=== PATIENT | male | born 1970 | race Caucasian/White ===

== ENCOUNTER 2018-03-30 09:20 | Day surgery (SDC) | payer OTHER ==
[2018-03-25 13:09] VITALS: BMI 29.5
[~2018-03-30 09:20] MED LIST: LACTATED RINGERS 1,000 ML IV SCH; LIDOCAINE 1% 20 ML VIAL (10MG/ML) FOR IV START INTRADERMA PRN
[2018-03-30 09:47] VITALS: RESP 16; TEMP 98.7
[2018-03-30] MEDS ORDERED: PROPOFOL 10 MG/ML 20 ML VIAL IV ONE (10:57)
[2018-03-30] MEDS ORDERED: fentaNYL (PF) 50 MCG/ML 2 ML AMP ONE (10:57)
[2018-03-30] MEDS ORDERED: MIDAZOLAM 2 MG/2 ML VIAL ONE (10:57)
--- NOTE | 2018-03-30 11:06 | P.GSHP ---
History of Present Illness H&P Date: 03/30/18 Chief Complaint: GERD This a 47-year-old male from Dr. Dav Smith. Patient will stay for EGD. He' s had issues with GERD. Past Medical History Past Medical History: Cancer, GERD/Reflux Additional Past Medical History / Comment(s): prostate cancer History of Any Multi-Drug Resistant Organisms: None Reported Past Surgical History: Prostate Surgery Past Anesthesia/Blood Transfusion Reactions: No Reported Reaction Smoking Status: Never smoker - Past Family History Mother Family Medical History: Cancer Father Family Medical History: Cancer, Myocardial Infarction ([place]) Additional Family Medical History / Comment(s): prostate cancer, aneurysm Medications and Allergies Home Medications Medication Instructions Recorded Confirmed Type Omeprazole [PriLOSEC] 20 mg PO AC-BRKFST 03/25/18 03/30/18 History Allergies Allergy/AdvReac Type Severity Reaction Status Date / Time No Known Allergies Allergy Verified 03/25/18 13:02 Surgical - Exam Vital Signs Temp Pulse Resp BP Pulse Ox 98.7 F 64 16 128/88 95 03/30/18 09:45 03/30/18 09:45 03/30/18 09:45 03/30/18 09:45 03/30/18 09:45 - General well developed, no distress - Eyes PERRL - ENT normal pinna - Neck no masses, no bruits - Respiratory normal expansion - Cardiovascular Rhythm: regular - Abdomen Abdomen: soft, non tender Assessment and Plan Assessment: GERD. We'll perform EGD.
--- NOTE | 2018-03-30 11:17 | P.OP ---
Date of Procedure: 03/30/18 Preoperative Diagnosis: GERD Postoperative Diagnosis: Antral gastritis Sliding hiatal hernia Mild esophagitis Procedure(s) Performed: EGD Anesthesia: MAC Surgeon: Antoine Landon Pathology: other (Antrum, esophagus) Condition: stable Disposition: PACU Description of Procedure: The patient's placed on the endoscopy table in the lateral position. He received IV sedation. The gastroscope placed oropharynx and then into the stomach and then through the pylorus and the duodenum. The first and second portion of the duodenum appeared normal. Scope was then brought back the antrum this. Mildly inflamed. A biopsies performed. The scope was then retroflexed and the remainder stomach appeared normal. The GE junction was at 38 cm. There was a sliding hiatal hernia. The distal esophagus appeared mildly inflamed. A biopsies performed. The proximal esophagus appeared normal. Scope was withdrawn for patient.
[2018-03-30 11:41] VITALS: BP 133/86; PULSE 60
== END 2018-03-30 11:59 | disposition home or self-care (01) ==
LOC: ORWHC2ENDO 09:20
PROVIDERS: ATTEND Surgery
DX: K29.70 Gastritis, unspecified, without bleeding (principal); K44.9 Diaphragmatic hernia without obstruction or gangrene; K21.0 Gastro-esophageal reflux disease with esophagitis; J30.9 Allergic rhinitis, unspecified; N18.3 Chronic kidney disease, stage 3 (moderate); J44.9 Chronic obstructive pulmonary disease, unspecified; Z85.46 Personal history of malignant neoplasm of prostate; Z79.899 Other long term (current) drug therapy
CPT/HCPCS: 88305; 43239; J2250; J3010; J2704

== ENCOUNTER → 2018-09-16 | Outpatient (CLI) | payer OTHER ==
--- NOTE | 2018-09-17 07:27 | US ---
EXAMINATION TYPE: US kidneys/renal and bladder DATE OF EXAM: 09/16/2018 COMPARISON: NONE CLINICAL HISTORY: N28.9 Renal Insuffiencey. Abnormal kidney function test. EXAM MEASUREMENTS: Right Kidney: 9.3 x 4.9 x 3.1 cm Left Kidney: 10.2 x 5.7 x 3.6 cm Right Kidney: Cystic area lower pole 1.2 x 1.6 x 1.5cm. Left Kidney: wnl Bladder: wnl Bilateral Jets seen: Yes There is no evidence for hydronephrosis at this point in time. No nephrolithiasis is seen. The urina ry bladder is anechoic. Bilateral ureteral jets are seen. There is 1.5 cm round hypoechoic anechoic lesion with increased through transmission lower pole level right kidney favoring simple cyst, too sm all to definitively characterize on this study. Consider short-term ultrasound follow-up 6 months shan e to document stability or renal protocol contrast-enhanced CT/MRI to definitively exclude complex cy stic or solid lesion. IMPRESSION: No hydronephrosis is evident bilaterally.
== END | disposition home or self-care (01) ==
LOC: RADUSMAIN 17:51
PROVIDERS: ATTEND Family Medicine
DX: N28.9 Disorder of kidney and ureter, unspecified (principal)
CPT/HCPCS: 76770

== ENCOUNTER 2019-01-07 07:46 | Observation (INO) | payer OTHER ==
[2019-01-03 14:41] VITALS: BMI 28.0
[~2019-01-07 07:46] MED LIST changes: +DEXAMETHASONE SOD PHOSPHATE 10 MG/ML 1 ML VIAL IV ONE; +HEPARIN SODIUM,PORCINE 5,000 UNIT/ML 1 ML VIAL SQ ONE; -LACTATED RINGERS 1,000 ML IV SCH; -LIDOCAINE 1% 20 ML VIAL (10MG/ML) FOR IV START INTRADERMA PRN; +MIDAZOLAM 2 MG/2 ML VIAL IV PRN; +ONDANSETRON 4 MG/2 ML VIAL IVP ONE; +SCOPOLAMINE 1.5MG/72HR PATCH TRANSDERM ONE; +ceFAZolin IN SWFI 2 GM/20 ML SYRINGE IVP ONE
[2019-01-07] MEDS: LACTATED RINGERS 1,000 ML IV SCH (08:16)
[2019-01-07] MEDS ORDERED: SUCCINYLCHOLINE CHLORIDE 100 MG/5 ML SYR IV ONE (09:18)
[2019-01-07] MEDS ORDERED: NEOSTIGMINE 1 MG/ML 10 ML VIAL ONE (09:18)
[2019-01-07] MEDS ORDERED: PROPOFOL 10 MG/ML 20 ML VIAL IV ONE (09:18)
[2019-01-07] MEDS ORDERED: GLYCOPYRROLATE 0.2 MG/ML 2 ML VIAL ONE (09:18)
[2019-01-07] MEDS ORDERED: MIDAZOLAM 2 MG/2 ML VIAL ONE (09:18)
[2019-01-07] MEDS ORDERED: ROCURONIUM BROMIDE 10 MG/ML 10 ML VIAL IV ONE (09:18)
[2019-01-07] MEDS ORDERED: fentaNYL (PF) 50 MCG/ML 2 ML AMP ONE (09:18)
[2019-01-07] MEDS ORDERED: LIDOCAINE 1% INJ 10MG/ML (20 ML MDV) ONE (09:18)
[2019-01-07] MEDS ORDERED: BUPIVACAINE (PF) 0.5% 30 ML VIAL SQ ONE (09:49)
[2019-01-07] MEDS ORDERED: ONDANSETRON 4 MG/2 ML VIAL IVP PRN (10:14)
[2019-01-07] MEDS ORDERED: LACTATED RINGERS 1,000 ML IV ONE (10:19)
--- NOTE | 2019-01-07 10:31 | P.OP ---
Date of Procedure: 01/07/19 Preoperative Diagnosis: GERD Postoperative Diagnosis: GERD Hiatal hernia Procedure(s) Performed: Laparoscopic Ruth fundal plication Anesthesia: PIERRE Surgeon: Antoine Landon Pathology: other (Antrum) Condition: stable Disposition: PACU Description of Procedure: The patient was placed on the operating table in the supine position. The patient received general anesthesia. And was placed in dorsal lithotomy position. The patient was prepped and draped in the usual sterile fashion. The skin incision sites were anesthetized with 1% local Xylocaine. The skin was incised in the left periumbilical area and then using a blade less 5 mm trocar under direct visualization panel cavity was entered. After adequate insufflation the laparoscope was then placed into the peritoneal cavity. Next a 5 mm trochars placed in the right epigastric position. Another 5 millimeter trocar the right lateral position. Another 5 millimeter trocar in the left lateral position a 5 mm trocar is placed in the left epigastric position. And then the initial 5 mm trocar was exchanged for a 10 mm trocar. The left lateral lobe liver was retracted. The hernia was seen. The crural defect was then dissected using the Harmonic scissors device. A 360 crural dissection was performed the esophagus stomach was reduced back into the peritoneal Cavity. The crural defect was then closed using 2-0 Ethibond suture. Next the fundus of the stomach was mobilized using the [place] scissors device. and then a 58-F rench bougie dilator was placed oropharynx passed into the esophagus and stomach the fundal plication wrap was then performed by grasping the fundus posteriorly and bringing it around the esophagus and stomach fundoplication was then performed using 2-0 Ethibond suture. Care was taken that the fundal location rested over top of the intra-abdominal esophagus. There was no injury seen to the stomach or esophagus. The dilator was then withdrawn. The abdomen was irrigated there is no bleeding seen. The trochars were then withdrawn and then skin incision sites were closed using 3-0 Monocryl suture Steri-Strips are applied. Patient thought procedure well and sent to recovery room in stable condition.
--- NOTE | 2019-01-07 10:32 | P.GSHP ---
History of Present Illness H&P Date: 01/07/19 Chief Complaint: GERD This a 48-year-old male referred from Dr. Ren. MinThe patient has had long- standing problems with reflux esophagitis. The patient underwent recent EGD is found have evidence of esophagitis. Patient has been well informed on the procedure of laparoscopic Ruth fundoplication. The patient is aware the risk of the conversion to the open procedure, risk of injury to the stomach, liver and spleen. The patient is also a risk of recurrent GERD and dysphagia symptoms. The patient understands there is a postoperative diet of full liquids for 2 weeks after surgery. Past Medical History Past Medical History: Cancer, GERD/Reflux Additional Past Medical History / Comment(s): Hx prostate cancer in 2016. History of Any Multi-Drug Resistant Organisms: None Reported Past Surgical History: Prostate Surgery Past Anesthesia/Blood Transfusion Reactions: No Reported Reaction Past Psychological History: No Psychological Hx Reported Smoking Status: Never smoker Past Alcohol Use History: Occasional Past Drug Use History: None Reported - Past Family History Mother Family Medical History: Cancer Father Family Medical History: Cancer, Myocardial Infarction ([place]) Additional Family Medical History / Comment(s): Prostate cancer, aneurysm. Medications and Allergies Home Medications Medication Instructions Recorded Confirmed Type Nexium (Unknown Dose) 1 tab PO QAM 01/03/19 01/07/19 History Allergies Allergy/AdvReac Type Severity Reaction Status Date / Time No Known Allergies Allergy Verified 01/07/19 08:09 Surgical - Exam Vital Signs Temp Pulse Resp BP Pulse Ox 98.2 F 74 16 132/85 94 L 01/07/19 08:04 01/07/19 08:04 01/07/19 08:04 01/07/19 08:04 01/07/19 08:04 - General well developed, well nourished, no distress - Eyes PERRL - ENT normal pinna - Neck no masses - Respiratory normal expansion - Cardiovascular Rhythm: regular - Abdomen Abdomen: soft, non tender Assessment and Plan Assessment: GERD. We'll perform laparoscopic Ruth fundoplication.
[2019-01-07] MEDS: HYDROmorphone 0.5 MG/0.5 ML SYRINGE IVP PRN ×4 (10:35→11:04)
[2019-01-07] MEDS: D5-0.45% NACL WITH KCL 20MEQ/L 1,000 ML IV SCH ×3 (15:23→22:25)
--- NOTE | 2019-01-07 15:23 | FL ---
EXAMINATION TYPE: FL esophagus cervic/pharynx DATE OF EXAM: 01/07/2019 LIMITED UGI-ESOPHAGRAM: CLINICAL HISTORY: History of hiatal hernia and reflux treated with medication status post Giovani fun doplication surgery earlier today. TECHNIQUE: Limited esophagram is performed utilizing 50 oz of Isovue-370. A total of 29 seconds of f luoroscopic time was utilized during procedure. 17 spot images are saved to PACS. FINDINGS: The patient swallowed contrast without difficulty or delay. Esophageal peristalsis and mo tility are within normal limits. There is moderate delay in flow of contrast along the diaphragmatic hiatus into the stomach, there is no evidence of contrast extravasation to suggest leak. No persisten t hiatal hernia is seen. Patient remains asymptomatic despite majority contrast refluxing back to mid esophageal level. Tiny amount of postoperative pneumoperitoneum below right hemidiaphragm incidental ly seen. IMPRESSION: No evidence of leak or residual hernia status post Giovani fundoplication surgery earlier today. Moderate obstruction at surgical site presumed on the basis of postoperative edema, patient no inocencio to show no increased symptoms of increased nausea.
[2019-01-07] MEDS: FAMOTIDINE 20 MG/2 ML VIAL IV SCH (19:38)
[2019-01-07] MEDS: HYDROmorphone 1 MG/ML 1 ML SYRINGE IVP PRN (22:25)
--- NOTE | 2019-01-07 22:45 | P.CONS ---
History of Present Illness - Reason for Consult Consult date: 01/07/19 Medical management Requesting physician: Antoine Landon - Chief Complaint Reflux - History of Present Illness Consultation: This is a very pleasant 48-year-old patient of Dr. Ren. Has been troubled with reflux symptoms for years. Has taken different antireflux medications including H2 blockers and PPI. Symptoms not getting better. Getting worse. Worse with lying down. And with certain foods. Therefore decided to go for surgery. Patient status post Ruth fundoplication. Postprocedure started on ice chips. Laying in bed. Pain is controlled. Patient had prostate cancer treated with cryotherapy. Review of systems: GEN.: None EYES: None HEENT: None NECK: None RESPIRATORY: None CARDIOVASCULAR: None GASTROINTESTINAL: Reflux GENITOURINARY: None MUSCULOSKELETAL: None LYMPHATICS: None HEMATOLOGICAL: None PSYCHIATRY: None NEUROLOGICAL: None Past medical history: Prostate cancer treated with cryotherapy, GERD Social history: Does not smoke. Alcohol occasionally. Lives alone. Works as a railroad. Physical examination: VITAL SIGNS: 98.2, 52,, 17, 114/65, 97% room air GENERAL: Average built, propped up in bed, not in distress. EYES: Pupils equal. Conjunctiva normal. HEENT: External appearance of nose and ears normal, oral cavity grossly normal. NECK: JVD not raised; masses not palpable. HEART: First and second heart sounds are normal; no edema. LUNGS: Respiratory rate normal; clear to auscultation. ABDOMEN: Soft, minimal tenderness, liver spleen not palpable, no masses palpable. PSYCH: Alert and oriented x3; mood and affect normal. NEUROLOGICAL: Cranial nerves grossly intact; no facial asymmetry, power and sensation grossly intact. LYMPHATICS: No lymph nodes palpable in the axilla and neck Assessment: -Status post Ruth fundoplication -Uncontrolled GERD -Sinus bradycardia Plan: Patient's current medications are reviewed that included scopolamine patch, lactated Ringer's, subcu heparin, IV Pepcid, subcu Lovenox,. Care was discussed with the patient. Encouraged to ambulate. Thank you Dr. Landon Past Medical History Past Medical History: Cancer, GERD/Reflux Additional Past Medical History / Comment(s): Hx prostate cancer in 2016. History of Any Multi-Drug Resistant Organisms: None Reported Past Surgical History: Prostate Surgery Past Anesthesia/Blood Transfusion Reactions: No Reported Reaction Past Psychological History: No Psychological Hx Reported Smoking Status: Never smoker Past Alcohol Use History: Occasional Past Drug Use History: None Reported - Past Family History Mother Family Medical History: Cancer Father Family Medical History: Cancer, Myocardial Infarction ([place]) Additional Family Medical History / Comment(s): Prostate cancer, aneurysm. Medications and Allergies Home Medications Medication Instructions Recorded Confirmed Type Nexium (Unknown Dose) 1 tab PO QAM 01/03/19 01/07/19 History Allergies Allergy/AdvReac Type Severity Reaction Status Date / Time No Known Allergies Allergy Verified 01/07/19 08:09 Physical Exam Vitals: Vital Signs Temp Pulse Pulse Resp BP BP Pulse Ox 01/07/19 18:46 98.2 F 71 17 114/65 97 01/07/19 13:56 52 L 51 L 15 01/07/19 13:00 52 L 157/104 01/07/19 12:45 59 L 149/98 01/07/19 12:30 50 L 133/91 01/07/19 12:15 57 L 135/89 01/07/19 12:00 52 L 142/93 01/07/19 11:45 54 L 141/92 01/07/19 11:30 49 L 125/85 01/07/19 11:15 98.0 F 51 L 15 118/75 96 01/07/19 11:06 51 L 16 134/88 97 01/07/19 10:50 58 L 16 140/87 98 01/07/19 10:35 57 L 16 139/62 100 01/07/19 10:21 79 16 144/95 96 01/07/19 08:04 98.2 F 74 16 132/85 94 L Intake and Output 01/07/19 01/07/19 01/07/19 06:59 14:59 22:59 Intake Total 1600 375 Output Total 10 Balance 1590 375 Intake: IV 1600 Intake, IV Titration 375 Amount D5-0.45% NaCl with KCl 375 20Meq/l 1,000 ml @ 125 mls/hr IV .Q8H [facility] Rx#: [id number] Output: Estimated Blood Loss 10 Other: Weight 86.183 kg
[2019-01-08] MEDS: LACTATED RINGERS 1,000 ML IV SCH (05:49)
[2019-01-08 08:09] VITALS: RESP 16
[2019-01-08] MEDS: FAMOTIDINE 20 MG/2 ML VIAL IV SCH (08:55)
[2019-01-08] MEDS: HYDROmorphone 1 MG/ML 1 ML SYRINGE IVP PRN (08:56)
[2019-01-08] MEDS ORDERED: ENOXAPARIN 40 MG/0.4 ML SYRINGE SQ SCH (09:00)
[2019-01-08] MEDS ORDERED: HYDROcodone/APAP 5-325MG 1 EACH TAB PO PRN (10:27)
--- NOTE | 2019-01-08 10:30 | P.DS ---
Providers Expected date of discharge: 01/08/19 Attending physician: Antoine Landon Consults: 01/07/19 10:14 Consult Physician Routine Consulting Provider: Vikas Rosado Consult Reason/Comments: Medical management Do you want consulting provider notified?: Yes [facility] Course: Patient underwent Ruth fundoplication yesterday laparoscopically. Did well overnight. Upper GI shows moderate obstruction however the patient is not symptomatic. Denies nausea or vomiting. No dysphagia at this time. He likes to go home today. Will plan discharge. Follow-up one week. Plan - Discharge Summary Discharge Rx Participant: Yes New Discharge Prescriptions: New HYDROcodone/APAP 5-325MG [Brielle 5-325] 1 tab PO Q4HR PRN #10 tab PRN Reason: Pain Continue Nexium (Unknown Dose) 1 tab PO QAM Discharge Medication List Nexium (Unknown Dose) 1 tab PO QAM 01/03/19 [History] HYDROcodone/APAP 5-325MG [Brielle 5-325] 1 tab PO Q4HR PRN #10 tab 01/08/19 [Rx] Follow up Appointment(s)/Referral(s): Ryland Ren DO [Primary Care Provider] - 1 Week (CALL OFFICE ON THURSDAY TO SCHEDULE APPOINTMENT, OFFICE CLOSED AT TIME OF DISCHARGE.) Antoine Landon MD [STAFF PHYSICIAN] - 1 Week (CALL OFFICE ON THURSDAY TO SCHEDULE APPOINTMENT, OFFICE CLOSED AT TIME OF DISCHARGE.) Patient Instructions/Handouts: *Surgery [facility] - ([facility]) Lap Ruth Fundiplication Post-Op Instructions, Fundoplication in Adults (DC) Activity/Diet/Wound Care/Special Instructions: NO HEAVY LIFTING, PUSHING OR PULLING NO DRIVING UNTIL OK WITH SURGEON MAY SHOWER, NO TUB BATHS, POOLS, HOT TUBS OR SOAKING OFF WORK UNTIL OK BY SURGEON LIQUID RUTH DIET UNTIL CHANGED BY SURGEON, NO CAFFEINE, NO STRAWS OR CARBONATION.
[2019-01-08 13:48] VITALS: BP 129/77; PULSE 71; TEMP 98
--- NOTE | 2019-01-08 23:44 | P.PN ---
Progress Note - Text Progress Note Date: 01/08/19 - Chief Complaint Reflux Interval history: This is a very pleasant 48-year-old patient of Dr. Ren. Has been troubled with reflux symptoms for years. Has taken different antireflux medications including H2 blockers and PPI. Symptoms not getting better. Getting worse. Worse with lying down. And with certain foods. Therefore decided to go for surgery. Patient status post Ruth fundoplication. Postprocedure started on ice chips. Laying in bed. Pain is controlled. Patient had prostate cancer treated with cryotherapy. Today-feeling better. Did tolerate a clear liquid diet. No nausea vomiting. No abdominal pain. Up and about. Review of systems: Was done for constitutional, cardiovascular, GI, pulmonary. relevant finding as above Current medications are reviewed that include: Reviewed in the electronic records from today Physical examination: VITAL SIGNS: 98, 71, 16, 129/77, 97% room air GENERAL: Sitting up comfortable EYES: Pupils equal. Conjunctiva normal. HEENT: External appearance of nose and ears normal, oral cavity grossly normal. NECK: JVD not raised; masses not palpable. HEART: First and second heart sounds are normal; no edema. LUNGS: Respiratory rate normal; clear to auscultation. ABDOMEN: Soft, minimal tenderness, liver spleen not palpable, no masses palpable. PSYCH: Alert and oriented x3; mood and affect normal. Assessment: -Status post Ruth fundoplication -Uncontrolled GERD -Sinus bradycardia Plan: Patient stable. Okay to be discharged. Follow with PCP. Thank you Dr. Landon
== END 2019-01-08 15:07 ==
LOC: OR 07:46 → 4SSUR 10:17 → OR 01-08 14:05 → 4SSUR 01-08 14:20
PROVIDERS: ADMIT Surgery; ATTEND Surgery
DX: K21.0 Gastro-esophageal reflux disease with esophagitis (principal); R00.1 Bradycardia, unspecified; N28.9 Disorder of kidney and ureter, unspecified; K44.9 Diaphragmatic hernia without obstruction or gangrene; Z85.46 Personal history of malignant neoplasm of prostate; Z79.899 Other long term (current) drug therapy; Z80.42 Family history of malignant neoplasm of prostate; Z82.49 Family history of ischemic heart disease and other diseases of the circulatory system
CPT/HCPCS: 74210; 43280; G0378; J2250; J1644; J1100; J2710; J2405; J2001; J1650; J3010; J1170 ×3; J0330; J2704; J0690; Q9967

== ENCOUNTER → 2019-01-24 | Outpatient (CLI) | payer OTHER | END | disposition home or self-care (01) | DX: N18.3 Chronic kidney disease, stage 3 (moderate) (principal) | CPT/HCPCS: 97802 ==

== ENCOUNTER → 2019-03-18 | Outpatient (CLI) | payer OTHER ==
--- NOTE | 2019-03-18 09:47 | US ---
EXAMINATION TYPE: US abd limited kidneys/bladder DATE OF EXAM: 03/18/2019 COMPARISON: NONE CLINICAL HISTORY: R74.8 ABN Levels of other serum enzymes. Abn labs, f/u right renal cyst EXAM MEASUREMENTS: Liver Length: 13.7 cm Gallbladder Wall: 0.3 cm CBD: 0.3 cm Right Kidney: 10.3 x 4.9 x 4.3 cm Left Kidney: 10.4 x 5.4 x 5.4 cm Pancreas: Obscured by bowel gas Liver: wnl Gallbladder: wnl CBD: wnl Right Kidney: Possible 4mm calculus upper pole/ cyst lower pole= 1.7 x 1.5 x 1.6 cm as seen on previ ous Left Kidney: Probable 9mm renal calculus upper pole Bladder: wnl Bilateral Jets Seen No IMPRESSION: 1. Nonobstructing nephrolithiasis noted.
== END | disposition home or self-care (01) ==
LOC: RADUSWWP 07:35
PROVIDERS: ATTEND Family Medicine
DX: N20.0 Calculus of kidney (principal)
CPT/HCPCS: 76705; 76770

== ENCOUNTER → 2019-04-08 | Outpatient (CLI) | payer OTHER ==
[2019-04-08 21:19] LABS: ALT 29 U/L (10-49); AST 27 U/L (14-35); Albumin/Globulin Ratio 2.65 (1.60-3.17); Alkaline Phosphatase 62 U/L (41-126); Bilirubin, Conjugated <0.20 mg/dL (0.20-0.40); Globulin 1.7 g/dL (1.6-3.3); Total Bilirubin 0.4 mg/dL (0.2-1.2); Total Protein 6.2 g/dL (6.2-8.2)
== END | disposition home or self-care (01) ==
LOC: LABWHC1 11:53
PROVIDERS: ATTEND Physician Assistant
DX: R74.8 Abnormal levels of other serum enzymes (principal)
CPT/HCPCS: 36415; 80076; 86708; 86709

== ENCOUNTER → 2020-05-16 | Outpatient (CLI) | payer OTHER ==
--- NOTE | 2020-05-16 09:27 | NM ---
EXAMINATION TYPE: NM hepatobiliary w CCK DATE OF EXAM: 05/16/2020 COMPARISON: NONE INDICATION: Biliary dyskinesia TECHNIQUE: After the intravenous administration of 4 mCi Tc 99m Mebrofenin hepatobiliary scintigraphy is performed. Images were obtained immediately post injection. FINDINGS: There is prompt uptake and excretion of radiotracer by the liver. Extrahepatic ducts are identified at 7 minutes. The gallbladder is visualized within 28 minutes. Small bowel activity is noted within 12 minutes. At one hour CCK was administered, patient was injected with 1.9 mcg of Kinevac, and gallbladder eject ion fraction is calculated at 45 %, which is in the normal range.. (Normal >35% and <80%.). IMPRESSION: 1. Normal hepatobiliary scan.
== END | disposition home or self-care (01) ==
LOC: RADNMMAIN 06:49
PROVIDERS: ATTEND Surgery
DX: K82.8 Other specified diseases of gallbladder (principal)
CPT/HCPCS: 78227; A9537; J2805

== ENCOUNTER 2020-09-06 09:47 | Day surgery (SDC) | payer OTHER ==
[2020-09-04 09:28] VITALS: BMI 29.5
[~2020-09-06 09:47] MED LIST changes: -DEXAMETHASONE SOD PHOSPHATE 10 MG/ML 1 ML VIAL IV ONE; -HEPARIN SODIUM,PORCINE 5,000 UNIT/ML 1 ML VIAL SQ ONE; +LACTATED RINGERS 1,000 ML IV SCH; +LIDOCAINE 1% (10MG/ML) FOR IV START INTRADERMA PRN; -MIDAZOLAM 2 MG/2 ML VIAL IV PRN; -ONDANSETRON 4 MG/2 ML VIAL IVP ONE; -SCOPOLAMINE 1.5MG/72HR PATCH TRANSDERM ONE; -ceFAZolin IN SWFI 2 GM/20 ML SYRINGE IVP ONE
[2020-09-06 10:52] VITALS: RESP 16; TEMP 97.9
[2020-09-06] MEDS ORDERED: MIDAZOLAM 2 MG/2 ML VIAL ONE (11:49)
[2020-09-06] MEDS ORDERED: fentaNYL (PF) 50 MCG/ML 2 ML AMP ONE (11:49)
[2020-09-06] MEDS ORDERED: PROPOFOL 10 MG/ML 20 ML VIAL IV ONE (11:49)
--- NOTE | 2020-09-06 11:54 | P.GSHP ---
History of Present Illness H&P Date: 09/06/20 Chief Complaint: Internal and external hemorrhoids Is a 50-year-old male who presents today for colonoscopy. Issues with internal and external hemorrhoids present problems with rectal bleeding pain itching. Past Medical History Past Medical History: Cancer, GERD/Reflux, Prostate Disorder Additional Past Medical History / Comment(s): Hx prostate cancer, current UTI- on Rx, History of Any Multi-Drug Resistant Organisms: None Reported Past Surgical History: Hernia Repair, Prostate Surgery Additional Past Surgical History / Comment(s): hiatal hernia repair Past Anesthesia/Blood Transfusion Reactions: No Reported Reaction Smoking Status: Never smoker - Past Family History Mother Family Medical History: Cancer Additional Family Medical History / Comment(s): lymphoma Father Family Medical History: Cancer, Myocardial Infarction ([place]) Additional Family Medical History / Comment(s): Prostate cancer, aneurysm. Medications and Allergies Home Medications Medication Instructions Recorded Confirmed Type Cipro(Dose Unknown) 1 tab PO BID 09/04/20 09/04/20 History Vitamin D (Dose Unknown) 1 tab PO QAM 09/04/20 09/04/20 History Allergies Allergy/AdvReac Type Severity Reaction Status Date / Time No Known Allergies Allergy Verified 09/04/20 09:21 Surgical - Exam Vital Signs Temp Pulse Resp BP Pulse Ox 97.9 F 88 16 143/88 95 09/06/20 10:50 09/06/20 10:50 09/06/20 10:50 09/06/20 10:50 09/06/20 10:50 - General well developed, well nourished, no distress - Eyes PERRL - ENT normal pinna - Neck no masses - Respiratory normal expansion - Cardiovascular Rhythm: regular - Abdomen Abdomen: soft, non tender Assessment and Plan Assessment: GI bleed, introduction hemorrhoids. We'll perform colonoscopy.
--- NOTE | 2020-09-06 12:04 | P.OP ---
Date of Procedure: 09/06/20 Preoperative Diagnosis: GI bleed Postoperative Diagnosis: Internal and external hemorrhoids Procedure(s) Performed: Colonoscopy Anesthesia: MAC Surgeon: Antoine Landon Pathology: none sent Condition: stable Disposition: PACU Description of Procedure: Patient's placed on the endoscopy table lateral position. He received IV sedation. Digital rectal exam was performed which revealed internal/external hemorrhoids. Flexible colonoscope was then placed patient anus and passed throughout the entire colon. The ileocecal valve was visualized. Cecum, ascending and transverse colon appeared normal. The descending and sigmoid colon appeared normal. Scope was then brought back the rectum this appeared normal. Scope was withdrawn for patient. Internal and external hemorrhoids noted. There is no active bleeding seen. It was presumed at the previous rectal bleeding is due to hemorrhoids.
[2020-09-06 12:20] VITALS: BP 108/58; PULSE 80
== END 2020-09-06 12:45 | disposition home or self-care (01) ==
LOC: ORWHC2ENDO 09:47
PROVIDERS: ATTEND Surgery
DX: K64.8 Other hemorrhoids (principal); K64.4 Residual hemorrhoidal skin tags; K62.5 Hemorrhage of anus and rectum; K21.9 Gastro-esophageal reflux disease without esophagitis; Z85.46 Personal history of malignant neoplasm of prostate; Z87.440 Personal history of urinary (tract) infections; Z98.890 Other specified postprocedural states; Z80.7 Family history of other malignant neoplasms of lymphoid, hematopoietic and related tissues; Z82.49 Family history of ischemic heart disease and other diseases of the circulatory system; Z80.42 Family history of malignant neoplasm of prostate
CPT/HCPCS: 45378; J2250; J3010; J2704

== ENCOUNTER 2020-10-02 06:14 | Day surgery (SDC) | payer OTHER ==
[2020-09-28 14:00] VITALS: BMI 29.5
[~2020-10-02 06:14] MED LIST changes: +ACETAMINOPHEN TAB 500 MG TAB PO PRN; +DEXAMETHASONE SOD PHOSPHATE 4 MG/ML 1 ML VIAL IV ONE; +HEPARIN SODIUM,PORCINE/PF 5,000 UNIT/0.5 ML SYRINGE SQ PRN; +MIDAZOLAM 2 MG/2 ML VIAL IV PRN; +ONDANSETRON 4 MG/2 ML VIAL IVP ONE; +Pre Op ABX Message 1 EACH MISC MISCELLANE ONE
[2020-10-02 06:37] VITALS: TEMP 97.8
[2020-10-02] MEDS ORDERED: LACTATED RINGERS 1,000 ML IV ONE (06:48)
[2020-10-02] MEDS ORDERED: HYDROmorphone 0.5 MG/0.5 ML SYRINGE IVP PRN (07:00)
[2020-10-02] MEDS ORDERED: LIDOCAINE 1% INJ 10MG/ML (20 ML MDV) ONE (07:53)
[2020-10-02] MEDS ORDERED: fentaNYL (PF) 50 MCG/ML 2 ML AMP ONE (07:53)
[2020-10-02] MEDS ORDERED: PROPOFOL 10 MG/ML 20 ML VIAL IV ONE (07:53)
[2020-10-02] MEDS ORDERED: MIDAZOLAM 2 MG/2 ML VIAL ONE (07:53)
[2020-10-02] MEDS ORDERED: KETAMINE 10 MG/ML 20 ML VIAL ONE (07:53)
[2020-10-02] MEDS ORDERED: SODIUM CHLORIDE 0.9% 100 ML with ceFAZolin 2,000 MG IV ONE ×2 (07:59)
[2020-10-02] MEDS ORDERED: BUPIVACAINE (PF) 0.25% 30 ML VIAL SQ ONE (08:20)
[2020-10-02] MEDS ORDERED: LIDOCAINE 0.5%-EPI 1:200,000 50 ML VIAL SQ ONE (08:21)
--- NOTE | 2020-10-02 08:52 | P.GSHP ---
History of Present Illness H&P Date: 10/02/20 Chief Complaint: Internal and external hemorrhoids Is a 50-year-old male who presents today for hemorrhoidectomy. He's had issues with rectal pain and bleeding itching. Due to internal and external hemorrhoids Past Medical History Past Medical History: Cancer, GERD/Reflux, Prostate Disorder Additional Past Medical History / Comment(s): Hx prostate cancer, recent UTI- finished antibiotics, hemorrhoids History of Any Multi-Drug Resistant Organisms: None Reported Past Surgical History: Hernia Repair, Prostate Surgery Additional Past Surgical History / Comment(s): hiatal hernia repair, recent colonoscopy Past Anesthesia/Blood Transfusion Reactions: No Reported Reaction Smoking Status: Never smoker - Past Family History Mother Family Medical History: Cancer Additional Family Medical History / Comment(s): lymphoma Father Family Medical History: Cancer, Myocardial Infarction ([place]) Additional Family Medical History / Comment(s): Prostate cancer, aneurysm. Medications and Allergies Home Medications Medication Instructions Recorded Confirmed Type Vitamin D (Dose Unknown) 1 tab PO QAM 09/04/20 09/28/20 History Multivitamins, Thera [Multivitamin 1 tab PO DAILY 09/28/20 09/28/20 History (formulary)] Allergies Allergy/AdvReac Type Severity Reaction Status Date / Time No Known Allergies Allergy Verified 09/28/20 12:48 Surgical - Exam Vital Signs Temp Pulse Resp BP Pulse Ox 97.8 F 69 18 121/78 97 10/02/20 06:36 10/02/20 06:36 10/02/20 06:36 10/02/20 06:36 10/02/20 06:36 - General well developed, well nourished, no distress - Eyes PERRL - ENT normal pinna - Neck no masses - Respiratory normal expansion - Cardiovascular Rhythm: regular - Abdomen Abdomen: soft, non tender - Rectum Large internal/external hemorrhoids Assessment and Plan Assessment: Internal hemorrhoids. We'll perform hemorrhoidectomy
[2020-10-02 08:58] VITALS: RESP 20
[2020-10-02 10:06] VITALS: BP 125/85; PULSE 64
--- NOTE | 2020-10-11 08:13 | P.OP ---
Date of Procedure: 10/02/20 Preoperative Diagnosis: Internal and external hemorrhoids Postoperative Diagnosis: Internal and external hemorrhoids Procedure(s) Performed: Internal and external hemorrhoidectomy Anesthesia: PIERRE Surgeon: Antoine Landon Pathology: other (Internal and external hemorrhoids) Condition: stable Disposition: PACU Description of Procedure: The patient's placed on the operative table in the prone position. He received general anesthesia. His anus was prepped and draped in sterile fashion. The patient had significant internal and external hemorrhoids. The anal retractors placed anus. The left lateral hemorrhoidal column was grasped. Hemostats and then the hemorrhoidectomy is performed using the Harmonic scissors. Next the right anterior and right posterior hemorrhoidal columns were dissected in identical fashion. The specimens of pathology. No bleeding was seen. The anal retractors withdrawn. The patient was sent to recovery room stable condition.
== END 2020-10-02 10:35 | disposition home or self-care (01) ==
LOC: OR 06:14
PROVIDERS: ATTEND Surgery
DX: K64.5 Perianal venous thrombosis (principal); K64.8 Other hemorrhoids; K64.4 Residual hemorrhoidal skin tags; K21.9 Gastro-esophageal reflux disease without esophagitis; Z85.46 Personal history of malignant neoplasm of prostate; Z87.440 Personal history of urinary (tract) infections; Z87.19 Personal history of other diseases of the digestive system; Z98.890 Other specified postprocedural states; Z80.7 Family history of other malignant neoplasms of lymphoid, hematopoietic and related tissues; Z80.42 Family history of malignant neoplasm of prostate; Z82.49 Family history of ischemic heart disease and other diseases of the circulatory system
CPT/HCPCS: 88304; 46260; J2250; J1100; J2405; J0690; J2001; J3010; J2704; J1644

== ENCOUNTER 2020-12-29 21:24 | Emergency (ER) | payer OTHER ==
[2020-12-29 21:28] VITALS: TEMP 97.9
[2020-12-29] MEDS ORDERED: HYDROmorphone 0.5 MG/0.5 ML SYRINGE IVP STA (21:40)
[2020-12-29] MEDS ORDERED: ONDANSETRON 4 MG/2 ML VIAL IVP STA (21:40)
[2020-12-29] MEDS ORDERED: SODIUM CHLORIDE 0.9% 1,000 ML IV STA (21:40)
--- NOTE | 2020-12-29 21:44 | ED ---
General Adult HPI - General Chief complaint: Nausea/Vomiting/Diarrhea Stated complaint: fever, side pain Time Seen by Provider: 12/29/20 21:28 Source: patient Mode of arrival: ambulatory Limitations: no limitations - History of Present Illness Initial comments: 50 year-old male patient presents to the emergency department for evaluation of left flank pain, nausea, and fever. Patient states symptoms started yesterday. Has had UTI in the past. Last antibiotics were 2 months ago. He is awaiting an appointment to see his urologist. States he occasionally has an odor to his urine. Denies any cloudiness, hematuria, or dysuria. States temperature was 102 F earlier today. States he has been nauseated and did have one episode of vomiting. Denies any constipation or diarrhea. States he has had hiatal hernia surgery with no other abdominal surgeries. Does have history of prostate cancer and had cryoablation. Denies any upper respiratory symptoms. Did take Tylenol for the fever. Patient denies any recent rash, cough, shortness of breath, chest pain, diarrhea, constipation, numbness, tingling, dizziness, weakness, headache, visual changes, or any other complaints. - Related Data Home Medications Medication Instructions Recorded Confirmed Vitamin D (Dose Unknown) 1 tab PO QAM 09/04/20 09/28/20 Multivitamins, Thera [Multivitamin 1 tab PO DAILY 09/28/20 09/28/20 (formulary)] Previous Rx's Medication Instructions Recorded Acetaminophen Tab [Tylenol] 650 mg PO Q6H #30 tab 10/02/20 Docusate [Colace] 100 mg PO BID #20 capsule 10/02/20 oxyCODONE HCL [OxyIR] 5 mg PO Q6H PRN 3 Days #10 tab 10/02/20 Cephalexin [Keflex] 500 mg PO Q6H #40 cap 12/29/20 Ibuprofen [Motrin] 600 mg PO Q8HR PRN #30 tab 12/29/20 Tamsulosin HCl [Flomax] 0.4 mg PO DAILY #7 cap 12/29/20 Allergies Allergy/AdvReac Type Severity Reaction Status Date / Time No Known Allergies Allergy Verified 12/29/20 21:25 Review of Systems ROS Statement: Those systems with pertinent positive or pertinent negative responses have been documented in the HPI. ROS Other: All systems not noted in ROS Statement are negative. Past Medical History Past Medical History: Cancer, GERD/Reflux, Prostate Disorder Additional Past Medical History / Comment(s): Hx prostate cancer, recent UTI- finished antibiotics, hemorrhoids History of Any Multi-Drug Resistant Organisms: None Reported Past Surgical History: Hernia Repair, Prostate Surgery Additional Past Surgical History / Comment(s): hiatal hernia repair, recent colonoscopy Past Anesthesia/Blood Transfusion Reactions: No Reported Reaction Past Psychological History: No Psychological Hx Reported Smoking Status: Never smoker Past Alcohol Use History: None Reported Past Drug Use History: None Reported - Past Family History Mother Family Medical History: Cancer Additional Family Medical History / Comment(s): lymphoma Father Family Medical History: Cancer, Myocardial Infarction ([place]) Additional Family Medical History / Comment(s): Prostate cancer, aneurysm. General Exam Limitations: no limitations General appearance: alert, in no apparent distress, other (This is a well-deve loped, well-nourished adult male patient in no acute distress. Vital signs upon presentation are temperature 97.9F, pulse 85, respirations 16, blood pressure 116/67, pulse ox 97% on room air.) ENT exam: Present: normal exam, normal oropharynx, mucous membranes moist Respiratory exam: Present: normal lung sounds bilaterally. Absent: respiratory distress, wheezes, rales, rhonchi, stridor Cardiovascular Exam: Present: regular rate, normal rhythm, normal heart sounds. Absent: systolic murmur, diastolic murmur, rubs, gallop, clicks GI/Abdominal exam: Present: soft, normal bowel sounds. Absent: distended, tenderness, guarding, rebound, rigid Back exam: Present: normal inspection. Absent: CVA tenderness (R), CVA tenderness (L) Neurological exam: Present: alert, oriented X3, CN II-XII intact Psychiatric exam: Present: normal affect, normal mood Skin exam: Present: warm, dry, intact, normal color. Absent: rash Course Vital Signs 12/29/20 12/29/20 21:25 23:18 Temperature 97.9 F Pulse Rate 85 79 Respiratory 16 18 Rate Blood Pressure 116/67 122/86 O2 Sat by Pulse 97 98 Oximetry Medical Decision Making - Medical Decision Making 50-year-old male patient presents to emergency department today for evaluation of left flank pain, fever, vomiting. Physical examination did reveal soft nontender abdomen. No CVA tenderness. He is afebrile here with normal vital signs. Labs reviewed and did reveal urinalysis containing white blood cells and red blood cells. Serum White blood cell count was normal. Did perform CT of the abdomen and pelvis which did show a 7 mm obstructing calculus the left midureter. I did discuss findings and results with the patient. Since he did have a fever earlier today who will be given prescription for Keflex. He'll be given nausea medication pain medication. He does see a urologist out of town, he is instructed to call on Thursday to see if he can get appointment. Return parameters were discussed in detail. He verbalizes understanding and agrees with this plan. Case discussed with my attending Dr. Stock. - Lab Data Result diagrams: 12/29/20 21:47 12/29/20 21:47 Lab Results 12/29/20 12/29/20 12/29/20 Range/Units 21:47 21:47 21:47 WBC 9.2 (3.8-10.6) k/uL RBC 4.90 (4.30-5.90) m/uL Hgb 14.0 (13.0-17.5) gm/dL Hct 40.7 (39.0-53.0) % MCV 83.1 (80.0-100.0) fL MCH 28.5 (25.0-35.0) pg MCHC 34.4 (31.0-37.0) g/dL RDW 13.3 (11.5-15.5) % Plt Count 198 (150-450) k/uL MPV 7.5 Neutrophils % 77 % Lymphocytes % 14 % Monocytes % 7 % Eosinophils % 1 % Basophils % 1 % Neutrophils # 7.0 (1.3-7.7) k/uL Lymphocytes # 1.3 (1.0-4.8) k/uL Monocytes # 0.6 (0-1.0) k/uL Eosinophils # 0.1 (0-0.7) k/uL Basophils # 0.1 (0-0.2) k/uL Sodium 139 (137-145) mmol/L Potassium 3.9 (3.5-5.1) mmol/L Chloride 102 (98-107) mmol/L Carbon Dioxide 27 (22-30) mmol/L Anion Gap 10 mmol/L BUN 12 (9-20) mg/dL Creatinine 1.34 H (0.66-1.25) mg/dL Est GFR (CKD-EPI)AfAm 71 (>60 ml/min/1.73 sqM) Est GFR (CKD-EPI)NonAf 62 (>60 ml/min/1.73 sqM) Glucose 132 H (74-99) mg/dL Plasma Lactic Acid Sarabjit (0.7-2.0) mmol/L Calcium 9.7 (8.4-10.2) mg/dL Total Bilirubin 1.2 (0.2-1.3) mg/dL AST 203 H (17-59) U/L ALT 283 H (4-49) U/L Alkaline Phosphatase 109 (38-126) U/L Total Protein 7.4 (6.3-8.2) g/dL Albumin 4.7 (3.5-5.0) g/dL Lipase 88 (23-300) U/L Urine Color Yellow Urine Appearance Clear (Clear) Urine pH 5.5 (5.0-8.0) Ur Specific [place] 1.025 (1.001-1.035) Urine Protein 1+ H (Negative) Urine Glucose (UA) Negative (Negative) Urine Ketones Negative (Negative) Urine Blood Moderate H (Negative) Urine Nitrite Negative (Negative) Urine Bilirubin Negative (Negative) Urine Urobilinogen <2.0 (<2.0) mg/dL Ur Leukocyte Esterase Large H (Negative) Urine RBC 39 H (0-5) /hpf Urine WBC 73 H (0-5) /hpf Ur Squamous Epith Cells <1 (0-4) /hpf Urine Mucus Rare H (None) /hpf 12/29/20 Range/Units 21:47 WBC (3.8-10.6) k/uL RBC (4.30-5.90) m/uL Hgb (13.0-17.5) gm/dL Hct (39.0-53.0) % MCV (80.0-100.0) fL MCH (25.0-35.0) pg MCHC (31.0-37.0) g/dL RDW (11.5-15.5) % Plt Count (150-450) k/uL MPV Neutrophils % % Lymphocytes % % Monocytes % % Eosinophils % % Basophils % % Neutrophils # (1.3-7.7) k/uL Lymphocytes # (1.0-4.8) k/uL Monocytes # (0-1.0) k/uL Eosinophils # (0-0.7) k/uL Basophils # (0-0.2) k/uL Sodium (137-145) mmol/L Potassium (3.5-5.1) mmol/L Chloride (98-107) mmol/L Carbon Dioxide (22-30) mmol/L Anion Gap mmol/L BUN (9-20) mg/dL Creatinine (0.66-1.25) mg/dL Est GFR (CKD-EPI)AfAm (>60 ml/min/1.73 sqM) Est GFR (CKD-EPI)NonAf (>60 ml/min/1.73 sqM) Glucose (74-99) mg/dL Plasma Lactic Acid Sarabjit 0.9 (0.7-2.0) mmol/L Calcium (8.4-10.2) mg/dL Total Bilirubin (0.2-1.3) mg/dL AST (17-59) U/L ALT (4-49) U/L Alkaline Phosphatase (38-126) U/L Total Protein (6.3-8.2) g/dL Albumin (3.5-5.0) g/dL Lipase (23-300) U/L Urine Color Urine Appearance (Clear) Urine pH (5.0-8.0) Ur Specific [place] (1.001-1.035) Urine Protein (Negative) Urine Glucose (UA) (Negative) Urine Ketones (Negative) Urine Blood (Negative) Urine Nitrite (Negative) Urine Bilirubin (Negative) Urine Urobilinogen (<2.0) mg/dL Ur Leukocyte Esterase (Negative) Urine RBC (0-5) /hpf Urine WBC (0-5) /hpf Ur Squamous Epith Cells (0-4) /hpf Urine Mucus (None) /hpf - Radiology Data Radiology results: report reviewed, image reviewed CT abdomen and pelvis with contrast was obtained. Report was reviewed in its entirety. Impression by Dr. Phillip shows obstructing calculus in the left midureter with left-sided hydronephrosis and hydroureter. Normal appendix. Disposition Clinical Impression: Kidney stone on left side Disposition: HOME SELF-CARE Condition: Good Instructions (If sedation given, give patient instructions): Kidney Stones (ED) Additional Instructions: Increase fluids. Take medications as directed. Follow-up with urologist for further evaluation as soon as possible. Return to the emergency department for any new, worsening, or concerning symptoms. Prescriptions: Tamsulosin HCl [Flomax] 0.4 mg PO DAILY #7 cap Cephalexin [Keflex] 500 mg PO Q6H #40 cap Ibuprofen [Motrin] 600 mg PO Q8HR PRN #30 tab PRN Reason: Pain Is patient prescribed a controlled substance at d/c from ED?: No Referrals: Ryland Ren DO [Primary Care Provider] - 1-2 days Time of Disposition: 23:58
[2020-12-29 22:07] LABS: Basophils # (A) 0.1 k/uL (0-0.2); Basophils % (A) 1 %; Eosinophils # (A) 0.1 k/uL (0-0.7); Eosinophils % (A) 1 %; HCT 40.7 % (39.0-53.0); Lymphocytes # (A) 1.3 k/uL (1.0-4.8); Lymphocytes % (A) 14 %; MCH 28.5 pg (25.0-35.0); MCHC 34.4 g/dL (31.0-37.0); MCV 83.1 fL (80.0-100.0); Mean Platelet Volume 7.5; Monocytes # (A) 0.6 k/uL (0-1.0); Monocytes % (A) 7 %; Neutrophils % (A) 77 %; Platelet Count 198 k/uL (150-450); RDW 13.3 % (11.5-15.5); WBC 9.2 k/uL (3.8-10.6)
[2020-12-29] MEDS ORDERED: ACETAMINOPHEN TAB 500 MG TAB PO STA (22:08)
[2020-12-29 22:09] LABS: Appearance,Urine Clear (Clear); Bilirubin,Urine Negative (Negative); Blood,Urine Moderate (Negative); Color,Urine Yellow; Glucose,Urine (UA) Negative (Negative); Ketones,Urine Negative (Negative); Leukocyte Esterase,Urine Large (Negative); Mucus,Urine Rare /hpf; Nitrite,Urine Negative (Negative); PH, Urine 5.5 (5.0-8.0); Protein,Urine 1+ (Negative); RBC,Urine 39 /hpf (0-5); Specific Gravity,Urine 1.025 (1.001-1.035); Squamous Epithelial Cell,Urine <1 /hpf (0-4); Urobilinogen,Urine <2.0 mg/dL (<2.0); WBC,Urine 73 /hpf (0-5)
[2020-12-29 22:17] LABS: Albumin 4.7 g/dL (3.5-5.0); Calcium 9.7 mg/dL (8.4-10.2); Potassium 3.9 mmol/L (3.5-5.1); Total Bilirubin 1.2 mg/dL (0.2-1.3); Total Protein 7.4 g/dL (6.3-8.2)
--- NOTE | 2020-12-29 23:11 | CT ---
EXAMINATION TYPE: CT abdomen pelvis w con DATE OF EXAM: 12/29/2020 COMPARISON: None HISTORY: Left sided abdominal pain and fever. CT DLP: 1039.5 mGycm Automated exposure control for dose reduction was used. CONTRAST: Performed with IV Contrast, patient injected with 100 mL of Isovue 300. Images obtained from the diaphragm to the floor the pelvis with IV contrast. Lung bases are clear of consolidation. There is no pleural effusion. There is small hiatal hernia. Th ere are clips at the gastroesophageal junction. Liver appears intact. Spleen is intact. Spleen is large and measures 13.5 cm. There is no pancreatic mass. Stomach is intact. Gallbladder appears normal. The bile ducts are nondilated. There is no adrenal mass. Kidneys have normal size. There is left-sided hydronephrosis and hydrourete r. There is 7 mm obstructing calculus in the mid left ureter. Bladder distends smoothly. There is del ayed left side pyelogram. There is no retroperitoneal adenopathy. There is 2 cm cortical cyst lower p ole right kidney. Bladder distends smoothly. There is no inguinal hernia. There is no free fluid in the pelvis. There is no mesenteric edema. There is no ascites or free air. There is no bowel obstruction. Lumbar vertebra have normal alignment. There is no compression fracture. The posterior elements are i ntact. Bony pelvis is intact. Appendix extends to the left side. There is no sign of appendicitis. IMPRESSION: Obstructing calculus in the left mid ureter with left-sided hydronephrosis and hydroureter. Normal ap pendix.
[2020-12-29 23:19] VITALS: BP 122/86; PULSE 79; RESP 18
[2020-12-29] MEDS ORDERED: TAMSULOSIN 0.4 MG CAP.ER.24H PO STA (23:56)
[2020-12-29] MEDS ORDERED: ONDANSETRON 4 MG ODT STARTER PACK 2 TAB BTL PO STA (23:56)
[2020-12-29] MEDS ORDERED: ACET/COD 300 MG/30 MG STARTER PACK 6 TAB BTL PO STA (23:56)
[2020-12-29] MEDS ORDERED: CEPHALEXIN 500MG STARTER PACK 4 CAP BTL PO STA (23:57)
== END 2020-12-30 00:09 | disposition home or self-care (01) ==
LOC: EC 21:24
DX: N13.2 Hydronephrosis with renal and ureteral calculous obstruction (principal); K21.9 Gastro-esophageal reflux disease without esophagitis; Z87.19 Personal history of other diseases of the digestive system; Z85.46 Personal history of malignant neoplasm of prostate; Z87.440 Personal history of urinary (tract) infections; Z79.1 Long term (current) use of non-steroidal anti-inflammatories (NSAID)
CPT/HCPCS: 36415; 80053; 83605; 83690; 85025; 81001; 87040; 87086; 87077; 87186; 74177; 99284; 96360; S0119; Q9967

== ENCOUNTER → 2021-04-10 | Outpatient (CLI) | payer OTHER ==
--- NOTE | 2021-04-10 07:58 | US ---
EXAMINATION TYPE: US liver DATE OF EXAM: 04/10/2021 COMPARISON: CT, US CLINICAL HISTORY: R94.5 ABN LIVER FUNCTIONS. Abnormal liver function tests. EXAM MEASUREMENTS: Liver Length: 15.1 cm Gallbladder Wall: 0.32 cm CBD: 0.40 cm Right Kidney: 11.5 x 5.6 x 5.0 cm Limited due to gas. Pancreas: Limited, tail obscured by gas. Liver: Increased echogenicity. Gallbladder: Appears anechoic. Evidence for sonographic Pollard's sign: No CBD: Portions seen appear wnl. Right Kidney: Anechoic area seen lower pole: 2.1 x 1.6 x 2.1 cm. Hyperechoic focus seen upper pole: 0.5 x 0.6 x 0.6 cm. IMPRESSION: 1. Nonobstructing superior pole right renal calcification. 2. Inferior right renal cyst.
== END | disposition home or self-care (01) ==
LOC: RADUSWWP 07:04
PROVIDERS: ATTEND Internal Medicine Gastroenterology
DX: R94.5 Abnormal results of liver function studies (principal); N28.1 Cyst of kidney, acquired; N28.89 Other specified disorders of kidney and ureter
CPT/HCPCS: 76705

== ENCOUNTER → 2021-10-11 | Outpatient (CLI) | payer OTHER ==
[2021-10-11 14:07] LABS: HGB 14.3 g/dL (13.0-17.0); MCH 28.1 pg (27.0-32.0); MCHC 33.3 g/dL (32.0-37.0); MCV 84.6 fL (80.0-97.0); Mean Platelet Volume 11.3 fL (9.5-12.2); NRBC Per 100 WBC 0 /100 WBCS (0.0-0.0); Platelet Count 212 X 10*3/uL (140-440); RBC 5.08 X 10*6/uL (4.40-5.60); RDW 13.8 % (11.5-14.5); WBC 6.64 X 10*3/uL (4.50-10.00)
[2021-10-11 15:08] LABS: ALT 47 U/L (10-49); African American GFR (CKD) 62.6 (60.0-200.0); BUN/Creat Ratio 11.76 Ratio (12.00-20.00); Blood Urea Nitrogen 17.4 mg/dL (9.0-27.0); Calcium 10.2 mg/dL (8.7-10.3); Carbon Dioxide 24.5 mmol/L (20.0-27.5); Chloride 102 mmol/L (96-109); Chol/HDL Ratio 4.93 Ratio; Glucose 101 mg/dL (70-110); LDL Cholesterol,Calculated 83.9 mg/dL (0.0-131.0); Sodium 141 mmol/L (135-145)
[2021-10-11 15:54] LABS: Appearance,Urine Clear (Clear); Bilirubin,Urine Negative (Negative); Blood,Urine Negative (Negative); Color,Urine Yellow (Yellow); Ketones,Urine Negative (Negative); Nitrite,Urine Negative (Negative); Specific Gravity,Urine 1.015 (1.001-1.030); Urobilinogen,Urine 0.2 (0.2,1.0)
== END | disposition home or self-care (01) ==
LOC: LABWHC1 08:52
PROVIDERS: ATTEND Family Medicine
DX: Z00.00 Encounter for general adult medical examination without abnormal findings (principal)
CPT/HCPCS: 36415; 80048; 80061; 81003; 82306; 83036; 84460; 85027

== ENCOUNTER → 2021-11-11 | Outpatient (CLI) | payer OTHER ==
[2021-11-11 22:54] LABS: Basophils # (A) 0.04 X 10*3/uL (0.00-0.10); Basophils % (A) 0.6 %; Eosinophils # (A) 0.11 X 10*3/uL (0.04-0.35); Eosinophils % (A) 1.7 %; HGB 13.9 g/dL (13.0-17.0); Immature Grans, Automated 0.2 %; Lymphocytes # (A) 2.53 X 10*3/uL (0.90-5.00); Lymphocytes % (A) 39.3 %; MCH 29.1 pg (27.0-32.0); MCHC 33.9 g/dL (32.0-37.0); MCV 85.8 fL (80.0-97.0); Mean Platelet Volume 12.1 fL (9.5-12.2); Monocytes # (A) 0.54 X 10*3/uL (0.20-1.00); Monocytes % (A) 8.4 %; NRBC Per 100 WBC 0 /100 WBCS (0.0-0.0); Neutrophils % (A) 49.8 %; Platelet Count 210 X 10*3/uL (140-440); RBC 4.78 X 10*6/uL (4.40-5.60); WBC 6.43 X 10*3/uL (4.50-10.00)
[2021-11-12 01:19] LABS: African American GFR (CKD) 69.3 (60.0-200.0); Albumin 4.7 g/dL (3.8-4.9); Albumin/Globulin Ratio 1.9 (1.60-3.17); Anion Gap 13.2 mmol/L (10.00-18.00); BUN/Creat Ratio 15.66 Ratio (12.00-20.00); Blood Urea Nitrogen 21.3 mg/dL (9.0-27.0); Globulin 2.5 g/dL (1.6-3.3); Non-African American GFR(CKD) 59.8 (60.0-200.0); Potassium 4.9 mmol/L (3.5-5.5); Total Bilirubin 0.3 mg/dL (0.30-1.20); Total Protein 7.2 g/dL (6.2-8.2)
== END | disposition home or self-care (01) ==
LOC: LABWHC1 15:44
PROVIDERS: ATTEND Internal Medicine Gastroenterology
DX: K76.0 Fatty (change of) liver, not elsewhere classified (principal)
CPT/HCPCS: 36415; 80053; 85025

== ENCOUNTER → 2021-11-12 | Outpatient (CLI) | payer OTHER | END | disposition home or self-care (01) | LOC: LABWHC1 15:26 | PROVIDERS: ATTEND Internal Medicine Gastroenterology | DX: K76.0 Fatty (change of) liver, not elsewhere classified (principal) | CPT/HCPCS: 36415 ==

== ENCOUNTER → 2022-07-15 | Outpatient (CLI) | payer OTHER ==
[2022-07-16 01:24] LABS: Appearance,Urine Clear (Clear); Bilirubin,Urine Negative (Negative); Blood,Urine Negative (Negative); Color,Urine Yellow (Yellow); Ketones,Urine Negative (Negative); Nitrite,Urine Negative (Negative); Specific Gravity,Urine 1.008 (1.001-1.030); Urobilinogen,Urine 0.2 (0.2,1.0)
[2022-07-16 01:43] LABS: HCT 44.7 % (39.6-50.0); HGB 14.5 g/dL (13.0-17.0); MCH 28.8 pg (27.0-32.0); MCHC 32.4 g/dL (32.0-37.0); MCV 88.9 fL (80.0-97.0); Mean Platelet Volume 11.6 fL (9.5-12.2); NRBC Per 100 WBC 0 /100 WBCS (0.0-0.0); Platelet Count 241 X 10*3/uL (140-440); RBC 5.03 X 10*6/uL (4.40-5.60); WBC 6.98 X 10*3/uL (4.50-10.00)
[2022-07-16 23:00] LABS: African American GFR (CKD) 61.7 (60.0-200.0); Albumin 4.9 g/dL (3.8-4.9); Albumin/Globulin Ratio 2.15 (1.60-3.17); Anion Gap 11.8 mmol/L (10.00-18.00); BUN/Creat Ratio 13.96 Ratio (12.00-20.00); Blood Urea Nitrogen 20.8 mg/dL (9.0-27.0); Calcium 10.1 mg/dL (8.7-10.3); Carbon Dioxide 27.7 mmol/L (20.0-27.5); Globulin 2.3 g/dL (1.6-3.3); Magnesium 2.2 mg/dL (1.5-2.4); Non-African American GFR(CKD) 53.2 (60.0-200.0); Phosphorus 3.8 mg/dL (2.4-5.1); Potassium 4.6 mmol/L (3.5-5.5); Total Bilirubin 0.3 mg/dL (0.30-1.20); Total Protein 7.1 g/dL (6.2-8.2); Uric Acid 8.1 mg/dL (3.7-8.7)
[2022-07-16 23:41] LABS: % Iron Saturation 13.31 (15.00-50.00)
== END | disposition home or self-care (01) ==
LOC: LABWHC1 15:15
PROVIDERS: ATTEND Nurse Practitioner Family
DX: N25.81 Secondary hyperparathyroidism of renal origin (principal); N18.2 Chronic kidney disease, stage 2 (mild); D63.1 Anemia in chronic kidney disease; N39.0 Urinary tract infection, site not specified; M10.9 Gout, unspecified; E55.9 Vitamin D deficiency, unspecified
CPT/HCPCS: 36415; 80053; 81003; 82306; 82728; 83540; 83550; 83735; 83970; 84100; 84550; 85027

== ENCOUNTER → 2022-10-29 | Outpatient (CLI) | payer OTHER, BC | END | disposition home or self-care (01) | LOC: LABWHC1 15:20 | PROVIDERS: ATTEND Registered Nurse | DX: Z80.42 Family history of malignant neoplasm of prostate (principal) | CPT/HCPCS: 36415; 84153 ==

== ENCOUNTER → 2023-08-17 | Outpatient (CLI) | payer OTHER, BC ==
--- NOTE | 2023-08-18 11:02 | US ---
EXAMINATION TYPE: US kidneys/renal and bladder DATE OF EXAM: 08/17/2023 COMPARISON: NONE CLINICAL INDICATION: Male, 53 years old with history of N18.31 CHRONIC KIDNEY DISEASE, STAGE 3A; CKD stage 3 no symptoms per patient EXAM MEASUREMENTS: Right Kidney: 11.3 x 5.3 x 4.6cm Left Kidney: 10.5 x 5.0 x 3.9 cm Right Kidney: 1.7 x 1.6 x 1.4cm inferior pole cyst. No hydronephrosis. Left Kidney: No hydronephrosis or masses seen Bladder: wnl Bilateral Jets seen: Yes Incidental echogenic hepatic parenchyma. IMPRESSION: 1. No hydronephrosis. 2. A benign 1.7 cm cortical cyst lower pole right kidney. 3. Incidental mild to moderate hepatic steatosis.
== END | disposition home or self-care (01) ==
LOC: RADUSWWP 14:52
PROVIDERS: ATTEND Internal Medicine
DX: N18.31 Chronic kidney disease, stage 3a (principal); N28.1 Cyst of kidney, acquired; K76.0 Fatty (change of) liver, not elsewhere classified
CPT/HCPCS: 76770

== ENCOUNTER → 2023-08-17 | Outpatient (CLI) | payer OTHER, BC ==
[2023-08-18 01:51] LABS: Chol/HDL Ratio 6.94 Ratio
[2023-08-18 01:52] LABS: ALT 47 U/L (10-49); AST 29 U/L (14-35); Albumin 4.8 g/dL (3.8-4.9); Albumin/Globulin Ratio 1.92 Ratio (1.60-3.17); Alkaline Phosphatase 63 U/L (41-126); BUN/Creat Ratio 15.82 Ratio (12.00-20.00); Blood Urea Nitrogen 17.4 mg/dL (9.0-27.0); Calcium 10.2 mg/dL (8.7-10.3); Carbon Dioxide 27.6 mmol/L (21.6-31.8); Chloride 100 mmol/L (96-109); Globulin 2.5 g/dL (1.6-3.3); Glucose 76 mg/dL (70-110); Potassium 4.4 mmol/L (3.5-5.5); Prostate Specific Antigen 1.08 ng/mL (0.000-3.500); Sodium 139 mmol/L (135-145); Total Bilirubin 0.3 mg/dL (0.3-1.2); Total Protein 7.3 g/dL (6.2-8.2)
[2023-08-18 02:20] LABS: HCT 43.8 % (39.6-50.0); HGB 14.8 g/dL (13.0-17.0); MCHC 33.8 g/dL (32.0-37.0); MCV 85.7 FL (80.0-97.0); Mean Platelet Volume 12.2 FL (9.5-12.2); NRBC Per 100 WBC 0 X 10*3/uL (0.00-0.01); Platelet Count 206 X 10*3/uL (140-440); RBC 5.11 X 10*6/uL (4.40-5.60); RDW 13.7 % (11.5-14.5); WBC 7.17 X 10*3/uL (4.50-10.00)
== END | disposition home or self-care (01) ==
LOC: LABWHC1 15:24
PROVIDERS: ATTEND Family Medicine
DX: Z00.00 Encounter for general adult medical examination without abnormal findings (principal); C61 Malignant neoplasm of prostate
CPT/HCPCS: 36415; 80053; 80061; 82040; 83036; 83721; 84153; 84270; 84403; 85027

== ENCOUNTER → 2023-08-29 | Outpatient (CLI) | payer OTHER, BC ==
[2023-08-29 13:31] LABS: Chol/HDL Ratio 5.74 Ratio; HDL Cholesterol 33.3 mg/dL (40.00-60.00)
[2023-08-29 13:43] LABS: VLDL Calculation 80.8 mg/dL (5.00-40.00)
[2023-08-29 13:44] LABS: LDL Cholesterol,Direct Reflex 82.9 mg/dL (0.00-129.00)
== END | disposition home or self-care (01) ==
LOC: LABWHC1 08:36
PROVIDERS: ATTEND Family Medicine
DX: E78.00 Pure hypercholesterolemia, unspecified (principal)
CPT/HCPCS: 36415; 80061; 83721

== ENCOUNTER → 2024-09-24 | Outpatient (CLI) | payer OTHER, BC ==
[2024-09-24 13:22] LABS: HCT 44.7 % (39.6-50.0); HGB 14.8 g/dL (13.0-17.0); MCH 28.2 pg (27.0-32.0); MCHC 33.1 g/dL (32.0-37.0); MCV 85.1 FL (80.0-97.0); Mean Platelet Volume 10.7 FL (9.5-12.2); NRBC Per 100 WBC 0 X 10*3/uL (0.00-0.01); Platelet Count 250 X 10*3/uL (140-440); RBC 5.25 X 10*6/uL (4.40-5.60); RDW 13.3 % (11.5-14.5); WBC 6.28 X 10*3/uL (4.50-10.00)
[2024-09-24 13:52] LABS: ALT 75 U/L (10-49); AST 44 U/L (14-35); Albumin 4.6 g/dL (3.8-4.9); Albumin/Globulin Ratio 1.84 Ratio (1.60-3.17); Alkaline Phosphatase 64 U/L (41-126); BUN/Creat Ratio 12.86 Ratio (12.00-20.00); Calcium 10.1 mg/dL (8.7-10.3); Carbon Dioxide 27.3 mmol/L (21.6-31.8); Chloride 101 mmol/L (96-109); Chol/HDL Ratio 5.56 Ratio; Globulin 2.5 g/dL (1.6-3.3); Glucose 111 mg/dL (70-110); Potassium 4.8 mmol/L (3.5-5.5); Prostate Specific Antigen 1.58 ng/mL (0.000-3.500); Sodium 138 mmol/L (135-145); Total Bilirubin 0.6 mg/dL (0.3-1.2); Total Protein 7.1 g/dL (6.2-8.2)
[2024-09-24 15:56] LABS: Appearance,Urine Clear (Clear); Bilirubin,Urine Negative (Negative); Blood,Urine Negative (Negative); Color,Urine Yellow (Yellow); Ketones,Urine Negative (Negative); Nitrite,Urine Negative (Negative); Specific Gravity,Urine 1.016 (1.001-1.030); Urobilinogen,Urine 0.2 E.U./DL
[2024-09-24 16:02] LABS: Bacteria,Urine None Seen (None Seen)
== END | disposition home or self-care (01) ==
LOC: LABWHC1 09:51
PROVIDERS: ATTEND Family Medicine
DX: Z00.00 Encounter for general adult medical examination without abnormal findings (principal); Z85.46 Personal history of malignant neoplasm of prostate
CPT/HCPCS: 36415; 80053; 80061; 81001; 82306; 83036; 83721; 84153; 84443; 85027